=== PATIENT | male | born 1975 | race Caucasian/White ===

== ENCOUNTER → 2024-09-12 | Outpatient (BNVA) | payer BC, SELFPAY | END | disposition home or self-care (01) | PROVIDERS: PCP Family Medicine; Referring Provider Family Medicine; Visit Provider Student in an Organized Health Care Education/Training Program | DX: N50.812 Left testicular pain (principal); E23.0 Hypopituitarism; N50.3 Cyst of epididymis | CPT/HCPCS: 99202; G0463 ==